=== PATIENT | male | born 1970 | race Caucasian/White ===

== ENCOUNTER 2020-08-19 17:27 | Emergency (ER) | payer OTHER ==
[2020-08-19 18:22] LABS: HEMOGLOBIN 15.9 gm/dl (14.0-17.5); RED BLOOD COUNT 5.07 M/UL (4.20-5.50); WHITE BLOOD COUNT 14.6 K/UL (4.5-11.0)
[2020-08-19 18:30] LABS: BUN/CREATININE RATIO 29 (0-10)
== END 2020-08-19 20:09 | disposition left against medical advice (07) ==
LOC: ER1 17:27 → EDBD 17:27 → ER1 20:09
PROVIDERS: Emergency Medicine
DX: R55 Syncope and collapse (principal); E87.6 Hypokalemia; I10 Essential (primary) hypertension; Z88.1 Allergy status to other antibiotic agents; Z88.0 Allergy status to penicillin
CPT/HCPCS: 71045; 80053; 82550; 82553; 83874; 83880; 84484; 85025; 93005; 99284; J7030